=== PATIENT | female | born 2000 | race Caucasian/White ===

== ENCOUNTER → 2024-11-01 10:41 | Outpatient (REF) | payer OTHER, SELFPAY ==
[2024-11-01 13:33] LABS: Hepatitis B Surface Antibody Indeterminate
[2024-11-03 15:37] LABS: Quantiferon Mitogen minus NIL 9.95 IU/mL; Quantiferon NIL 0.05 IU/mL; Quantiferon Plus TB1 minus NIL 0.01 IU/mL (<=0.34); Quantiferon Plus TB2 minus NIL 0.01 IU/mL (<=0.34); Quantiferon TB Gold Plus Negative (Negative)
== END ==
LOC: OHS 10:41
PROVIDERS: ATTENDING PHYSICIAN Nurse Practitioner Family
DX: Z23 Encounter for immunization (principal)
CPT/HCPCS: 36415; 86480; 86706